=== PATIENT | male | born 1995 | race Caucasian/White ===

== ENCOUNTER 2020-11-20 16:00 | Outpatient (RCR) | payer OTHER, SELFPAY ==
--- NOTE | 2020-11-19 11:10 | MHC.SP.ADU ---
Referring provider: Dr. Jamie Mora Reason for Referral: Re-eval Type of Treatment: 41422 Evaluation of Speech Sound Production Date of Plan of Treatment: 11/13/20 Onset of Symptoms/Illness: 97 Date Treatment Started: 04/26/21 Medical Diagnosis: Autism Primary Speech Language Diagnosis: F80.0 Specific developmental disorders of speech and language Secondary Speech Language Diagnosis: F84.0 Autistic disorder History Yosi Damon is a 25 year old male with autism who was referred for a speech and language re-evaluation by his primary care physician, Dr. Jamie Mora. Background information was gathered from Yosi, and from his previous speech therapy evaluation. 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 Per patient report, Yosi did not start talking until the age of [age] years old and he has ?always had speech issues?. He participated in speech therapy in middle and high school, however did not take it seriously and now is more motivated to improve his speech. Yosi works at his local [employer], and at the time of his initial evaluation, reported that he often becomes frustrated because customers misunderstand him frequently. He finds himself repeating himself and stuttering even more when these communication breakdowns occur. Yosi stated that even when spending time with his friends, he finds himself more reserved for fear that he will be misunderstood. He stated that he is more comfortable speaking around his family, as they are accustomed to his speech and can understand him better than others. Yosi was evaluated in March, at [facility]. At that time, Yosi had concerns surrounding both speech sound production and fluency. Yosi has been seen weekly for 26 weeks where articulation of /r/ and /s/ were targeted, in addition to fluency shaping and stuttering modification techniques. Though, Yosi came to the realization that his fluency is not a concern, rather his articulation and anxiety surrounding it are of utmost importance. Yosi has made significant progress towards his speech goals in the time that he has been seen. His confidence has significantly improved and his anxiety surrounding his speech production has also improved. Yosi has a medical history significant for autism and asthma, otherwise he is a relatively healthy individual. Please note that this evaluation was completed via telepractice, as a precaution to the COVID-19 Pandemic. Yosi participated in this evaluation through a videoconferencing (audio and video) session using the HIPAA compliant program, [employer] from his home in [place], [place]. Provider (this SPECIAL EDUCATION PRESCHOOL TEACHER) was located at work location, [facility] located in [place], [place]. 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 Past Speech Language Therapy: Yosi has been receiving speech therapy in the outpatient setting for 26 weeks. Swallowing History: Dysphagia Specific: Within Functional Limits Comments: No concerns for swallowing disorder. Pre-eval Risk for Aspiration: None Pre-evaluation Dietary Consistencies: Regular Pre-eval Liquid Intake: Thin Pre-eval Medication Intake: Whole with Liquid Reported Speech, Language, Cognition difficulties: Speaking Comments: Yosi is most concerned regarding his articulation and intelligibility. Assessment Speech Production: Within Functional Limits Clinical Impression: Impaired Observations: Yosi was evaluated using the Henderson Fristoe Test of Articulation 3rd edition (GFTA-3). The test was administered through the screen sharing capabilities of the GFTA-3 digital stimulus book via [employer]. The GFTA-3 is a standardized assessment designed to evaluate speech sound abilities in children, adolescents, and adults ages 2;0-21;11 years old. The GFTA-3 assesses the production of [place] consonant sounds in the initial, medial, and final position of words at the levels of both single words and connected speech. It is important to note that standardized scores could not be obtained, as it was not normed on the population that represents Yosi. However, qualitative information was gathered through this assessment regarding Yosi?s speech sound production and speech clarity. Yosi was administered the Sounds in Words subtest, to measure his production of consonant sounds in various positions at the word level and the Sounds in Sentences subtest, to measure his production of consonants in various word positions at the sentence level. Based on the information gathered, Yosi demonstrates articulation errors with the following sounds: Vocalic /r/: -ar, -er, -air, -lesley, -or, -ear Yosi has made significant improvement since his previous articulation testing. He no longer produces /r/ blends with a glide alternative (i.e. bwush for brush ). He can produce prevocalic /r/ with a much closer approximation than when tested in March. Although Yosi's articulation has improved significantly, he continues to present with speech sound errors that are no longer age appropriate. All speech sounds are typically mastered by 9 years old. Yosi's overall speech intelligibility has increased from 80% intelligible to >95% intelligible over the course of treatment. Yosi has made progress towards his articulation goals and has the tools to continue at home practice to achieve closer approximations of vocalic /r/. Informal Voice Assessment: Voice Loudness: Normal Voice Nasal Resonance: Hyponasal/Denasal Voice Oral Resonance: Normal Voice Phonatory-based Quality: Normal Voice Pitch: Normal Voice Other Observations: Clinical Impression: Impaired Clinicial Observations: Yosi's voice was subjectively judged to be within functional limits. His nasal resonance is perceived as hyponasal; sounding like he is congested at times. Impressions and Recommendations Summary: Impact on Daily Function/Activity Limitations: Daily Activities: Mild Interpersonal Interactions: Mild Education: None Employment: Mild Community: Mild Prognosis for Improvement: Good Comment: Yosi's prognosis for improvement is good based on his motivation to work towards his goals at home and complete the home practice program provided. Recommendation for Speech Therapy: Discharged with Instructions for Home Use At this time, skilled speech therapy is no longer warranted. Yosi has the tools he needs to complete at home exercises. He will be discharged with instructions for home practice. oYsi will be seen for one final speech therapy visit to review handouts provided for home practice. Recommended Referrals to be Discussed with Primary Care Provider: ENT Consult Patient Education: Completed: Yes Patient/Caregiver Education: Described Results of Evaluation Patient expressed understanding of evaluation Comments/Barriers to Learning: Adobe Layer Helper Clinican/Clinical Fellow: Yes: Cynthia Marte M.A., CF-SPECIAL EDUCATION PRESCHOOL TEACHER Supervisory Statement: Yes Speech Language Pathologist: Verna Riley M.A., CCC-SPECIAL EDUCATION PRESCHOOL TEACHER
== END 2020-11-21 10:48 | disposition other institution (70) ==
LOC: HO.SH 16:00
PROVIDERS: Visit Provider Pediatrics Adolescent Medicine
DX: F84.0 Autistic disorder (principal); F80.0 Phonological disorder
CPT/HCPCS: 92507; 92522